=== PATIENT | male | born 1980 | race Caucasian/White ===

== ENCOUNTER 2016-10-03 17:47 | Emergency (ER) | payer OTHER ==
[2016-10-03 18:15] VITALS: BP 147/80
[2016-10-03] MEDS ORDERED: LEVOFLOXACIN 500 MG TABLET PO ONE (22:11)
[2016-10-03] MEDS ORDERED: KETOROLAC TROMETHAMINE 30 MG/ML VIAL IM ONE (22:11)
[2016-10-03] MEDS ORDERED: oxyCODONE HCL/ACETAMINOPHEN 1 TAB TABLET PO ONE (22:11)
--- NOTE | 2016-10-03 22:16 | ERNOTE ---
Headache ER HPI - Narrative Date of Service: 10/03/16 - General Presenting Symptoms: headache - frontal head area and back of the eyes on the R side worse Time Seen by Provider: 10/03/16 22:01 Source: patient Exam Limitations: no limitations - Immun/Allergies/Home Medications Immunizations: IMMUNIZATION HX Immunizations Up to Date Yes History of Influenza Vaccine No Hx Pneumococcal Vaccination No Allergies/Adverse Reactions: Allergies No Known Allergies Allergy (Verified 01/16/16 23:50) Home Medications: HOME MEDICATIONS Fluticasone Propionate [Flonase] 2 spray NS BID #2 inhaler 10/03/16 [Last Taken Unknown] Levofloxacin [Levaquin] 750 mg PO DAILY #10 tablet 10/03/16 [Last Taken Unknown] Naproxen [Naprosyn] 500 mg PO BID #20 tablet 10/03/16 [Last Taken Unknown] - Pain Pain Score: 6 - History of Present Illness Narrative: Patient comes due to a frontal headache that radiates to the back of the eyes. Activity at onset: other - Rest Context Headache: Present: new onset. Absent: CO exposure, tick bite, insect bite, sick contact, meningitis exposure, recent head injury < 24 hrs ago, recent head injury > 24 hrs, recent travel-outside [place] Quality: Present: achy, pressure, throbbing Severity Maximum: Present: moderate Severity-Currently: Present: moderate Headache frequency: Present: no recent headache Modifying Factors - (Improves): Reports: other - nothing Modifying Factors - (Worsens): Reports: other - nothing Associated Symptoms: Reports: nasal congestion, other - blurred vision. Denies : fever/chills, nausea, sweating, nasal drainage, facial pain, fatigue, weakness , numbness/tingling, vision changes, confusion, light-headedness, dizziness, loss of consciousness, seizures, neck pain/stiffness, speech problems Exacerbated by:: Reports: light, movement Prior Treament: Denies: recently seen Review of Systems - Review of Systems Constitutional: Absent: fever, chills, weakness EYE: Present: eye pain - more in the OD retro orbital area, blurred vision. Absent: eye discharge, double vision, vision changes, tearing ENT: Present: nose congestion, sore throat. Absent: ear pain, ear discharge, pulling on ears, nose pain, nasal drainage, throat swelling Respiratory: Present: cough - non productive Cardiology: Present: no symptoms reported Gastrointestinal/Abdominal: Present: no symptoms reported Genitourinary: Present: no symptoms reported Musculoskeletal: Present: no symptoms reported Skin: Absent: rash Neurological: Present: headache - frontal headache reported. Absent: dizziness/ light-headedness, seizure, weakness, numbness, tingling, tremors, pre-existing deficit Endocrine: Present: no symptoms reported Hematologic/Lymphatic: Present: no symptoms reported Psych: Present: no symptoms reported All Other Systems: All systems neg except as marked - Patient's Past Medical History Patient History - Medical: No pertinent hx Patient History - Cardiac/Respiratory: Hypertension Patient History - Cancer: No Hx of Cancer Patient History - Surgical Procedures: Other - Social History Living Situations: significant other Smoking Status: Current every day smoker Alcohol Use: occasionally Drug Use: none Physical Exam - Physical Exam General Appearance: Present: wd/wn, alert, no apparent distress Eye Exam: Normal inspection: bilateral, PERRL: bilateral, EOMI: bilateral Ears, Nose, Throat: Present: hearing grossly normal, abnormal TM (R) - There is dullness, loss of landmarks, erythema, pharyngeal erythema, pharyngeal swelling , other - Patient with swelling no nasal turbinates and engorment.. Absent: cerumen impaction, tonsillar exudate Neck: Present: normal inspection, nontender. Absent: carotid bruit Respiratory: Present: no respiratory distress, normal breath sounds, no accessory muscle use, chest nontender, lungs clear Cardiovascular/Chest: Present: regular rate, rhythm, no murmur, normal peripheral pulses Peripheral Pulses: N=norm/S=strong/W=weak/B=bound/A=absent: Carotid (R): Normal , Carotid (L): Normal Gastrointestinal/Abdominal: Present: normal bowel sounds, nontender, nondistended, soft, no organomegaly Male Genitals Exam: Present: normal genitalia, normal prostate, no hernia Back Exam: Present: normal inspection, no CVA tenderness Extremity Exam: Present: normal inspection, non-tender, no edema, normal range of motion Neurological Exam: Present: alert, oriented, normal mood/affect, no motor/ sensory deficits Skin Exam: Present: normal color, warm/dry Lymphatic Exam: Present: no adenopathy ED Progress - Date and Time Seen: Date and Time: 10/03/16 22:26 Patient with a FMS, GCS: 15/15, NIH Stroke Scale: 0. Patient has been found with sings and symptoms of sinusitis. Patient will be given Tx and is to follow up with his PCP. - Vital Signs Patient's Vital Signs:: I have reviewed the patient's vital signs. Vital Signs: Vital Signs 10/03/16 18:09 Temperature 35.3 C L Pulse Rate 90 Respiratory 14 Rate Blood Pressure 147/80 - Progress/Reassessment Chief Complaint: Headache Progress:: Re-examined - Transfer of Care Expected Disposition: Discharge Departure Clinical Impression: Head ache Qualifiers: Headache type: unspecified Headache chronicity pattern: acute headache Intractability: not intractable Qualified Code(s): R51 - Headache Sinusitis Qualifiers: Sinusitis location: frontal Chronicity: acute Recurrence: non-recurrent Qualified Code(s): J01.10 - Acute frontal sinusitis, unspecified - Departure Disposition: Home self-care Condition: Stable Instructions: Sinus Headache, Sinusitis, Adult, [id number], General Headache Without Cause Prescriptions: Fluticasone Propionate [Flonase] 2 spray NS BID #2 inhaler Levofloxacin [Levaquin] 750 mg PO DAILY #10 tablet Naproxen [Naprosyn] 500 mg PO BID #20 tablet
[2016-10-03] MEDS ORDERED: oxyCODONE HCL/ACETAMINOPHEN 1 TAB TABLET ONE (23:17)
[2016-10-03] MEDS ORDERED: LEVOFLOXACIN 500 MG TABLET ONE (23:18)
[2016-10-03] MEDS ORDERED: KETOROLAC TROMETHAMINE 30 MG/ML VIAL ONE (23:18)
[2016-10-03] MEDS ORDERED: LEVOFLOXACIN 250 MG TABLET ONE (23:18)
[2016-10-03] MEDS ORDERED: HALOPERIDOL LACTATE 5 MG/ML VIAL ONE (23:42)
[2016-10-03] MEDS ORDERED: LORazepam 2 MG/ML DISP.SYRIN ONE (23:47)
== END 2016-10-03 23:42 | disposition home or self-care (01) ==
LOC: ER 17:47
DX: J01.10 Acute frontal sinusitis, unspecified (principal); R51 Headache; F17.210 Nicotine dependence, cigarettes, uncomplicated